=== PATIENT | male | born 1995 | race Caucasian/White ===

== ENCOUNTER 2018-04-08 21:00 | Emergency (ER) | payer BC, OTHER ==
[~2018-04-08] VITALS: Ht 188 cm; Wt 83.9 kg
[2018-04-08 21:09] VITALS: BP_SYST 121
[2018-04-08] MEDS ORDERED: LIDOCAINE 1% 10 MG/ML, 20 ML MDV INJ ONE (22:15)
[2018-04-08 23:10] VITALS: BP_SYST 121
== END 2018-04-08 23:10 | disposition home or self-care (01) ==
LOC: SED 21:00
DX: S63.287A Dislocation of proximal interphalangeal joint of left little finger, initial encounter (principal); R03.0 Elevated blood-pressure reading, without diagnosis of hypertension; X58.XXXA Exposure to other specified factors, initial encounter; Y93.67 Activity, basketball; Y92.89 Other specified places as the place of occurrence of the external cause; Y99.8 Other external cause status
CPT/HCPCS: 26770; 73130; 73140; 99284; J2001